=== PATIENT | female | born 1990 | race Caucasian/White ===

== ENCOUNTER → 2017-04-10 | Outpatient (CLI) | payer SELFPAY ==
[~2017-04-10] MED LIST: PRENATAL TABLE1 EAC3 PO; PROGESTERONE200 MG PO; VALTREX1000 MG PO
== END | disposition home or self-care (01) ==
LOC: RAD 10:00
DX: R93.8 Abnormal findings on diagnostic imaging of other specified body structures (principal)
CPT/HCPCS: 76856